=== PATIENT | male | born 1960 | race African-American/Black ===

== ENCOUNTER 2019-01-21 08:13 | Emergency (ER) | payer SELFPAY ==
--- NOTE | 2019-01-21 09:14 | EDM.PDOC ---
ED HPI GENERAL MEDICAL PROBLEM - General Chief Complaint: Genitourinary Problem Stated Complaint: DIFFICULTY URINATING Time Seen by Provider: 01/21/19 09:12 Source of Information: Reports: Patient History Limitations: Reports: No Limitations - History of Present Illness INITIAL COMMENTS - FREE TEXT/NARRATIVE: Is a 58-year-old male presenting today with one-month intermittent dysuria; states having increasing worsening of his hesitancy while urinating and notices some suprapubic fullness. Having been seen by a physician for many years and has not used any [id number] medications for pain relief. Currently denies any fevers, chills, body aches, diarrhea, constipation. Denies any concerns about STDs. Right Groin Pain Score (Numeric/FACES): 10 - Related Data Allergies Allergy/AdvReac Type Severity Reaction Status Date / Time No Known Allergies Allergy Verified 01/21/19 08:33 Home Meds: Home Meds Ciprofloxacin HCl [Cipro] 500 mg PO BID #10 tablet 01/21/19 [Rx] Tamsulosin HCl [Flomax] 0.4 mg PO DAILY 14 Days #14 cap.er.24h 01/21/19 [Rx] Past Medical History - Past Health History Medical/Surgical History: Denies Medical/Surgical History Social & Family History - Family History Family Medical History: Noncontributory - Tobacco Use Smoking Status *Q: Never Smoker - Recreational Drug Use Recreational Drug Use: No ED ROS GENERAL - Review of Systems Review Of Systems: See Below Constitutional: Denies: Fever, Chills, Malaise HEENT: Reports: No Symptoms Respiratory: Reports: No Symptoms Cardiovascular: Reports: No Symptoms. Denies: Chest Pain GI/Abdominal: Reports: No Symptoms. Denies: Bloody Stool, Constipation, Diarrhea, Mucous in Stool, Nausea : Reports: Dysuria, Urinary Retention. Denies: Discharge, Hematuria Neurological: Reports: No Symptoms. Denies: Confusion, Headache Psychiatric: Reports: No Symptoms ED EXAM, GENERAL - Physical Exam Exam: See Below Exam Limited By: Other (mmild language barrier) General Appearance: Alert, No Apparent Distress Throat/Mouth: Normal Inspection Respiratory/Chest: No Respiratory Distress, Lungs Clear, Normal Breath Sounds Cardiovascular: Normal Peripheral Pulses, Regular Rate, Rhythm GI/Abdominal: Normal Bowel Sounds, Other (mild suprapubic tenderness ) Neurological: Alert, Oriented, CN II-XII Intact Psychiatric: Normal Affect, Normal Mood Skin Exam: Warm, Dry Course - Vital Signs Last Recorded V/S: Last Vital Signs Temp 96.5 F 01/21/19 08:31 Pulse 68 01/21/19 10:45 Resp 20 01/21/19 10:45 BP 138/85 01/21/19 10:45 Pulse Ox 99 01/21/19 10:45 - Orders/Labs/Meds Orders: Active Orders 24 hr Category Date Time Status CHLAMYDIA AND GONORRHEA BY [facility] Stat Lab 01/21/19 08:30 Received Labs: Laboratory Tests 01/21/19 Range/Units 08:30 Urine Color YELLOW Urine Appearance CLEAR Urine pH 7.0 (5.0-8.0) Ur Specific [place] 1.015 (1.001-1.035) Urine Protein NEGATIVE (NEGATIVE) mg/dL Urine Glucose (UA) >=1000 (NEGATIVE) mg/dL Urine Ketones NEGATIVE (NEGATIVE) mg/dL Urine Occult Blood NEGATIVE (NEGATIVE) Urine Nitrite NEGATIVE (NEGATIVE) Urine Bilirubin NEGATIVE (NEGATIVE) Urine Urobilinogen 0.2 (<2.0) EU/dL Ur Leukocyte Esterase NEGATIVE (NEGATIVE) Meds: Medications Discontinued Medications Generic Name Dose Route Start Last Admin Trade Name Freq PRN Reason Stop Dose Admin Ciprofloxacin 500 mg 01/21/19 10:06 01/21/19 10:32 Ciprofloxacin Hcl PO 01/21/19 10:07 500 mg ONETIME ONE Administration Tamsulosin HCl 0.4 mg 01/21/19 09:57 01/21/19 10:06 Flomax PO 01/21/19 09:58 0.4 mg ONETIME ONE Administration Departure - Departure Time of Disposition: 11:27 Disposition: Home, Self-Care 01 Clinical Impression: Prostatitis - Discharge Information *PRESCRIPTION DRUG MONITORING PROGRAM REVIEWED*: No *COPY OF PRESCRIPTION DRUG MONITORING REPORT IN PATIENT BETHANY: No Prescriptions: Ciprofloxacin HCl [Cipro] 500 mg PO BID #10 tablet Tamsulosin HCl [Flomax] 0.4 mg PO DAILY 14 Days #14 cap.er.24h Instructions: Prostatitis, [id number] Forms: ED Department Discharge - Problem List Review Problem List Initiated/Reviewed/Updated: Yes - My Orders Last 24 Hours: My Active Orders 01/21/19 08:30 CHLAMYDIA AND GONORRHEA BY [facility] Stat - Assessment/Plan Last 24 Hours: My Active Orders 01/21/19 08:30 CHLAMYDIA AND GONORRHEA BY [facility] Stat Assessment:: Prostatitis BPH Urinalysis and abdomen pelvis x-ray performed. patient given Cipro 500 twice a day 7 days. he was also initiated on Flomax daily 14 days . PCP follow-up appointment scheduled for following week and Dr. Jasmin Hoff. Advised to return to ED if symptoms of fever, chills, worsening abdominal pain and or blood in urine develops. Advised to follow up with PCP as this is a chronic issue that needs to be addressed. patient understood plan. All questions answered. Will return PRN.
--- NOTE | 2019-01-21 09:56 | CR ---
INDICATION: PAIN INDICATION: Pain. TECHNIQUE: Abdomen 4 view. COMPARISON: None FINDINGS: Bowel: Bowel pattern is normal. Soft tissues: No sign of free air. No sign of soft tissue mass. No suspicious calcifications. Bones: Well corticated, 10 mm ossific fragment lateral to the left femoroacetabular joint, which appears incidental and benign.. IMPRESSION: 1. Nonobstructive bowel gas pattern. 2. No extraluminal gas. Dictated by Isaac Suarez MD @ 01/21/2019 9:55:13 AM Dictated by: Isaac Suarez MD @ 01/21/2019 09:55:20 (Electronically Signed)
[2019-01-21] MEDS ORDERED: Tamsulosin 0.4 MG Cap.ER PO ONE (09:57)
[2019-01-21] MEDS ORDERED: Ciprofloxacin 500 MG Tab PO ONE (10:06)
== END 2019-01-21 10:35 | disposition home or self-care (01) ==
LOC: MW.ED 08:13
DX: N41.9 Inflammatory disease of prostate, unspecified (principal); N40.1 Benign prostatic hyperplasia with lower urinary tract symptoms; R39.11 Hesitancy of micturition
CPT/HCPCS: 74019; 81003; 87491; 87591; 99284; A9270